=== PATIENT | female | born 1990 | race Caucasian/White ===

== ENCOUNTER 2024-09-14 17:55 | Emergency (ER) | payer MEDICAID, OTHER ==
[~2024-09-14] VITALS: Ht 175.3 cm; Wt 59.1 kg
[~2024-09-14 17:55] MED LIST: PREN1TAB52 PO
[2024-09-14 17:59] VITALS: BP 121/80; PULSE 80; RESP 16; TEMP 98.5; O2SAT 99
[2024-09-14 19:55] LABS: BASOPHILS % (AUTO) 0.7 % (0.0-2.0); HEMATOCRIT 41.1 % (36-46); HEMOGLOBIN 13.7 g/dL (12.0-16.0); LYMPHOCYTES # (AUTO) 1.8 K/uL (1.0-4.8); LYMPHOCYTES % (AUTO) 18.9 % (22.0-44.0); MEAN CORPUSCULAR HEMOGLOBIN 29.3 pg (26.0-34.0); MEAN CORPUSCULAR HGB CONC 33.3 G/dL (31.0-37.0); MEAN CORPUSCULAR VOLUME 88 fL (80-100); MONOCYTES # (AUTO) 0.7 K/uL (0.1-1.0); MONOCYTES % (AUTO) 7.1 % (2.0-9.0); NEUTROPHILS # (AUTO) 6.9 K/uL (1.8-7.7); NEUTROPHILS % (AUTO) 72.3 % (40.0-70.0); PLATELET COUNT (AUTO) 255 K/uL (150-450); RED BLOOD CELL COUNT(AUTO) 4.68 MIL/uL (4.00-5.20); RED CELL DISTRIBUTION WIDTH 13.7 % (11.5-14.5); WHITE BLOOD COUNT (AUTO) 9.5 K/uL (4.5-11.0)
[2024-09-14] MEDS: HYDROCODONE/ACETAMINOPHEN 5-325 MG TABLET PO ONE (20:16)
[2024-09-14] MEDS: METHOCARBAMOL 500 MG TABLET PO ONE (20:16)
[2024-09-14] MEDS: KETOROLAC TROMETHAMINE 60 MG/2 ML VIAL IM ONE (20:16)
[2024-09-14] MEDS ORDERED: HYDR-4062 PO (21:30)
[2024-09-14] MEDS ORDERED: IBUP-1554 PO (21:30)
[2024-09-14] MEDS ORDERED: METH-659 PO (21:30)
== END 2024-09-14 22:03 | disposition home or self-care (01) ==
LOC: EMS 17:55
DX: S01.112A Laceration without foreign body of left eyelid and periocular area, initial encounter (principal); S13.4XXA Sprain of ligaments of cervical spine, initial encounter; R25.1 Tremor, unspecified; W22.09XA Striking against other stationary object, initial encounter; Y93.89 Activity, other specified; Y92.410 Unspecified street and highway as the place of occurrence of the external cause; Y99.8 Other external cause status
CPT/HCPCS: 99285; 70450; 71045; 84703; 85025; 36415; 72125; 96372; J1885